=== PATIENT | female | born 1970 | race African-American/Black ===

== ENCOUNTER 2021-11-08 12:42 | Inpatient (IN) | payer OTHER ==
[~2021-11-08] VITALS: Ht 167.6 cm; Wt 87.0 kg
[2021-11-08 14:56] LABS: Basophils # (auto) 0.1 10 ^3/uL (0-0.2); Basophils % (auto) 0.8 % (0.0-2.0); Eosinophils # (auto) 0.1 10 ^3/uL (0-0.8); Eosinophils % (auto) 2.1 % (0.0-7.0); Hematocrit 35.8 % (36.0-46.0); Hemoglobin 11.6 g/dL (12.2-16.2); Lymphocytes % (auto) 30.2 % (10.0-50.0); Mean Corpuscular Hemoglobin 29.1 pg (28.0-32.0); Mean Corpuscular Hgb Conc. 32.5 g/dL (32.0-36.0); Mean Corpuscular Volume 89.4 fL (80.0-100.0); Monocytes # (auto) 0.4 10 ^3/uL (0-1.3); Monocytes % (auto) 6.4 % (0.0-12.0); Neutrophils # (auto) 4.1 10 ^3/uL (1.6-8.6); Neutrophils % (auto) 60.5 % (37.0-80.0); Nucleated Red Blood Cells % 0.2 %; Red Cell Distribution Width 13.9 % (11.8-14.3); White Blood Cell 6.7 10^3/uL (4.4-10.8)
[2021-11-08 15:23] LABS: Albumin 3.5 g/dL (3.4-5.0); BUN/Creatinine Ratio 10.4; Calcium 8.5 mg/dL (8.5-10.1); Potassium 5.3 mmol/L (3.5-5.1)
[2021-11-08 15:26] LABS: Bilirubin, Total 0.5 mg/dL (0.2-1.0); Total Protein 7.4 g/dL (6.4-8.2)
[2021-11-08] MEDS ORDERED: IOHEXOL 350 MG/ML 100ML IJ ONE (16:21)
[2021-11-08] MEDS ORDERED: ENOXAPARIN SOD 80 MG/0.8ML SYRINGE SC ONE (17:15)
[2021-11-08] MEDS ORDERED: hydrALAZINE HCL 20 MG/ML VL IV PRN (18:30)
[2021-11-08] MEDS: SOD CHL 0.45% 1,000 ML IV SCH (18:42)
[2021-11-08] MEDS: HYDROcodone-ACET 5/325MG TAB PO PRN (19:16)
[2021-11-08 19:45] LABS: Cholesterol 187 mg/dL (< 200)
[2021-11-08 19:47] LABS: HDL Cholesterol 49 mg/dL (40-59); LDL Cholesterol 121 mg/dL (< 100); Triglycerides 109 mg/dL (< 150)
[2021-11-08 20:37] LABS: INR 1.05 (0.9-1.15)
[2021-11-08 23:30] VITALS: BP 135/78
[2021-11-09] VITALS (18 sets, daily range): BP systolic 107–152; BP diastolic 64–103
[2021-11-09] MEDS: SOD CHL 0.45% 1,000 ML IV SCH ×2 (04:30→15:09)
[2021-11-09] MEDS: ENOXAPARIN SOD 100 MG/1 ML SYRINGE SC SCH ×2 (05:34→16:33)
[2021-11-09 05:35] LABS: Basophils # (auto) 0 10 ^3/uL (0-0.2); Basophils % (auto) 0.4 % (0.0-2.0); Eosinophils # (auto) 0.2 10 ^3/uL (0-0.8); Eosinophils % (auto) 3.3 % (0.0-7.0); Hematocrit 32.8 % (36.0-46.0); Hemoglobin 10.9 g/dL (12.2-16.2); Lymphocytes # (auto) 2.1 10 ^3/uL (0.4-5.4); Lymphocytes % (auto) 35.5 % (10.0-50.0); Mean Corpuscular Hemoglobin 29.7 pg (28.0-32.0); Mean Corpuscular Hgb Conc. 33.2 g/dL (32.0-36.0); Mean Corpuscular Volume 89.5 fL (80.0-100.0); Monocytes # (auto) 0.5 10 ^3/uL (0-1.3); Monocytes % (auto) 7.6 % (0.0-12.0); Neutrophils # (auto) 3.2 10 ^3/uL (1.6-8.6); Neutrophils % (auto) 53.2 % (37.0-80.0); Nucleated Red Blood Cells % 0.3 %; Red Blood Cells 3.67 10^6/uL (4.0-5.20); Red Cell Distribution Width 13.9 % (11.8-14.3)
[2021-11-09 05:46] LABS: BUN/Creatinine Ratio 7.7; Potassium 3.8 mmol/L (3.5-5.1)
[2021-11-09 05:50] LABS: Bilirubin, Total 0.6 mg/dL (0.2-1.0)
[2021-11-09] MEDS: HYDROcodone-ACET 5/325MG TAB PO PRN ×2 (08:54→16:34)
[2021-11-09 09:25] LABS: Urine WBC None Seen /hpf (0 - 5)
[2021-11-09 09:38] LABS: Urine Bacteria FEW /hpf (None Seen); Urine Blood Negative /uL (Negative); Urine Specific Gravity 1.005 (1.001-1.035)
[2021-11-09] MEDS: ACETAMINOPHEN 500 MG TAB PO PRN (13:15)
[2021-11-09] MEDS ORDERED: diphenhdrAMINE HCL 50 MG/1 ML VL IV ONE (16:45)
[2021-11-10] MEDS: ACETAMINOPHEN 500 MG TAB PO PRN (02:42)
[2021-11-10 05:00] VITALS: BP 118/78
[2021-11-10] MEDS: ENOXAPARIN SOD 100 MG/1 ML SYRINGE SC SCH ×2 (05:36→17:17)
[2021-11-10] MEDS: SOD CHL 0.45% 1,000 ML IV SCH (05:39)
[2021-11-10 07:17] LABS: Basophils # (auto) 0 10 ^3/uL (0-0.2); Basophils % (auto) 0.5 % (0.0-2.0); Eosinophils # (auto) 0.2 10 ^3/uL (0-0.8); Eosinophils % (auto) 3.8 % (0.0-7.0); Hematocrit 32.6 % (36.0-46.0); Hemoglobin 10.8 g/dL (12.2-16.2); Lymphocytes # (auto) 1.7 10 ^3/uL (0.4-5.4); Mean Corpuscular Hemoglobin 29.8 pg (28.0-32.0); Mean Corpuscular Hgb Conc. 33.2 g/dL (32.0-36.0); Mean Corpuscular Volume 89.6 fL (80.0-100.0); Monocytes # (auto) 0.4 10 ^3/uL (0-1.3); Monocytes % (auto) 7.1 % (0.0-12.0); Neutrophils # (auto) 2.8 10 ^3/uL (1.6-8.6); Neutrophils % (auto) 55.6 % (37.0-80.0); Nucleated Red Blood Cells % 0.4 %; Red Blood Cells 3.64 10^6/uL (4.0-5.20); Red Cell Distribution Width 14.2 % (11.8-14.3); White Blood Cell 5.1 10^3/uL (4.4-10.8)
[2021-11-10 09:00] VITALS: BP 114/75
[2021-11-10 10:21] LABS: Potassium 3.4 mmol/L (3.5-5.1)
[2021-11-10 13:00] VITALS: BP 110/80
[2021-11-10 17:00] VITALS: BP 135/91
[2021-11-10] MEDS: buPROPion HCL 75 MG TAB PO SCH (17:17)
[2021-11-10 22:00] VITALS: BP 127/83
[2021-11-11] MEDS: HYDROcodone-ACET 5/325MG TAB PO PRN ×2 (00:15→07:04)
[2021-11-11] MEDS: ENOXAPARIN SOD 100 MG/1 ML SYRINGE SC SCH (04:24)
[2021-11-11] MEDS: ACETAMINOPHEN 500 MG TAB PO PRN (04:30)
[2021-11-11] MEDS: SOD CHL 0.45% 1,000 ML IV SCH ×3 (04:35→21:16)
[2021-11-11 05:00] VITALS: BP 118/70
[2021-11-11] MEDS: buPROPion HCL 75 MG TAB PO SCH ×2 (06:47→16:58)
[2021-11-11 09:00] VITALS: BP 139/89
[2021-11-11] MEDS: DOCUSATE SOD 100 MG CAP PO SCH ×2 (11:00→21:18)
[2021-11-11 13:00] VITALS: BP 115/83
[2021-11-11 16:53] VITALS: BP 123/83
[2021-11-11] MEDS: ENOXAPARIN SOD 80 MG/0.8ML SYRINGE SC SCH (16:58)
[2021-11-11 22:00] VITALS: BP 130/80
[2021-11-11] MEDS ORDERED: ENOXAPARIN SOD 80 MG/0.8ML SYRINGE SC SCH (22:00)
[2021-11-12 05:00] VITALS: BP 130/84
[2021-11-12] MEDS: ENOXAPARIN SOD 80 MG/0.8ML SYRINGE SC SCH (05:16)
[2021-11-12] MEDS: buPROPion HCL 75 MG TAB PO SCH (07:00)
[2021-11-12 09:00] VITALS: BP 133/81
[2021-11-12] MEDS: DOCUSATE SOD 100 MG CAP PO SCH (10:00)
[2021-11-12] MEDS ORDERED: APIX5TAB4 PO ×4 (12:09→15:16)
[2021-11-12 13:00] VITALS: BP 126/67
[2021-11-12 14:29] VITALS: BP 126/67
== END 2021-11-12 14:53 | disposition home or self-care (01) | DRG 175 ==
LOC: ER 12:42 → TELE 18:19 → DOU IN ICU 23:00 → TELE-CENTR 11-09 16:43
PROVIDERS: ADMIT Registered Nurse; ATTEND Internal Medicine
PROC: 05HD33Z Insertion of Infusion Device into Right Cephalic Vein, Percutaneous Approach (ICD-10-PCS; principal; 2021-11-09)
PROC: B54MZZA Ultrasonography of Right Upper Extremity Veins, Guidance (ICD-10-PCS; 2021-11-09)
DX: I26.94 Multiple subsegmental thrombotic pulmonary emboli without acute cor pulmonale (principal); J96.01 Acute respiratory failure with hypoxia; E78.5 Hyperlipidemia, unspecified; I10 Essential (primary) hypertension; Z20.822 Contact with and (suspected) exposure to COVID-19; E66.9 Obesity, unspecified; R74.01 Elevation of levels of liver transaminase levels; Z68.30 Body mass index [BMI] 30.0-30.9, adult; Z86.011 Personal history of benign neoplasm of the brain; Z80.3 Family history of malignant neoplasm of breast; Z90.711 Acquired absence of uterus with remaining cervical stump; Z98.82 Breast implant status; Z88.5 Allergy status to narcotic agent
CPT/HCPCS: 36415; 71045; 71275; 80053; 80061; 81001; 81025; 82306; 83735; 83880; 84132; 84484; 85025; 85610; 87081; 93005; 93306; 93970; 96372; 97163; G0378